=== PATIENT | female | born 1990 | race African-American/Black ===

== ENCOUNTER 2021-05-06 10:45 | Inpatient (IN) ==
[2021-05-06 11:52] LABS: Basophils % 0.3 % (0.0-0.8); Eosinophils # 0.1 10*3/uL (0.0-0.87); Eosinophils % 1.1 % (0.00-10.9); Hematocrit 34.3 VOL% (35.7-47.0); Hemoglobin 10.7 GM/DL (12.0-16.0); Immature Granulocytes % 0.7 %; Immature Granulocytes Absolute 0.05 #; Lymphocytes # 1.3 10*3/uL (1.4-4.0); Lymphocytes % 17.6 % (21.3-54.2); Mean Corpuscular HGB Conc 31.2 GM/DL (32-36); Mean Corpuscular Volume 83.7 FL (87-102); Mean Platelet Volume 11.1 FL (9.6-12.0); Monocytes % 4.6 % (1.7-12.7); Neutrophils % 75.7 % (38.7-73.9); Platelet Count 345 T/CUMM (130-400); Red Cell Distribution Width 16.5 % (9.3-17.3); White Blood Count 7.2 T/CUMM (4-12)
[2021-05-06 12:19] LABS: INR 0.9; PT Patient Result 10.7 SECS (10.5-12.0)
[2021-05-06 12:26] LABS: Alanine Aminotransferase 156 U/L (13-56); Albumin 2.2 G/DL (3.4-5.0); Alkaline Phosphatase 70 U/L (45-117); Aspartate Amino Transferase 68 U/L (0-37); Bilirubin,Direct < 0.100 MG/DL (0.0-0.20); Bilirubin,Total < 0.39 MG/DL (0.20-1.00); Blood Urea Nitrogen 9 MG/DL (7-18); Calcium 9.4 MG/DL (8.5-10.1); Carbon Dioxide 21 MMOL/L (21-32); Estimated Glom Filtration Rate 179 ML/MIN; Glucose 112 MG/DL (74-106); Osmolality,Calculated 274.7 MOS/KG (273-304); Sodium 138 MMOL/L (136-145); Total Protein 7.3 G/DL (6.4-8.2); Uric Acid 3.8 MG/DL (2.6-6.0)
[2021-05-06] MEDS ORDERED: DEXTROSE 50% 25 GM/50 ML SYRINGE IV PRN (13:15)
[2021-05-06] MEDS ORDERED: GLUCAGON 1 MG VIAL IM PRN (13:15)
[2021-05-06] MEDS ORDERED: BETAMETH SODIUM PHOS/ACETATE 30 MG/5 ML VIAL IM ONE (16:24)
[2021-05-06] MEDS ORDERED: INSULIN ASPART PROTAMINE/ASPART 70/30 100 UNIT/ML SUBCUT SCH (16:30)
[2021-05-06] MEDS ORDERED: INSULIN LISPRO 100 UNIT/ML SUBCUT SCH (19:00)
[2021-05-06] MEDS ORDERED: INSULIN GLARGINE 100 UNIT/ML SUBCUT SCH (21:00)
[2021-05-06] MEDS: sulfaSALAzine 500 MG TABLET PO SCH (21:14)
[2021-05-06] MEDS: LABETALOL 100 MG TABLET PO SCH (21:19)
[2021-05-07] MEDS ORDERED: CLINDAMYCIN INJ 900 MG/50 ML PREMIX IV ONE ×2 (00:51→12:00)
[2021-05-07] MEDS ORDERED: INFLUENZA VIRUS VACCINE 0.5 ML SYRINGE IM ONE (07:21)
[2021-05-07] MEDS ORDERED: INSULIN ASPART PROTAMINE/ASPART 70/30 100 UNIT/ML SUBCUT SCH ×2 (07:30→11:30)
[2021-05-07] MEDS ORDERED: INSULIN LISPRO 100 UNIT/ML SUBCUT SCH ×2 (08:00→12:00)
[2021-05-07] MEDS ORDERED: INSULIN GLARGINE 100 UNIT/ML SUBCUT SCH (09:00)
[2021-05-07] MEDS: LABETALOL 100 MG TABLET PO SCH (09:01)
[2021-05-07] MEDS ORDERED: METOCLOPRAMIDE 10 MG/2 ML VIAL IV ONE (10:18)
[2021-05-07] MEDS ORDERED: FAMOTIDINE 20 MG/2 ML VIAL IV ONE ×2 (10:32→12:00)
[2021-05-07] MEDS: LACTATED RINGERS 1,000 ML IV PRN ×2 (10:41→14:47)
[2021-05-07] MEDS: sulfaSALAzine 500 MG TABLET PO SCH (11:06)
[2021-05-07] MEDS ORDERED: CITRIC ACID/SODIUM CITRATE 30 ML UDCUP PO ONE (12:00)
[2021-05-07] MEDS ORDERED: OXYTOCIN 10 UNIT/ML VIAL IM ONE (13:44)
[2021-05-07] MEDS ORDERED: OXYTOCIN/LR 30 UNIT/1,000 ML BAG IV ONE (13:44)
[2021-05-07] MEDS ORDERED: OXYTOCIN/LR 20 UNIT/1,000 ML BAG IV ONE ×2 (13:44→16:40)
[2021-05-07] MEDS ORDERED: METOCLOPRAMIDE 10 MG/2 ML VIAL ONE (15:30)
[2021-05-07] MEDS ORDERED: ONDANSETRON 4 MG/2 ML VIAL ONE (15:30)
[2021-05-07] MEDS ORDERED: SODIUM CHLORIDE 0.9% 1,000 ML IV ONE (15:30)
[2021-05-07] MEDS ORDERED: BUPIVACAINE SPINAL 0.75% 2 ML AMP SPINAL ONE (15:30)
[2021-05-07] MEDS ORDERED: SUCCINYLCHOLINE 200 MG/10 ML VIAL ONE (15:51)
[2021-05-07] MEDS ORDERED: ROCURONIUM 50 MG/5 ML VIAL IV ONE (15:51)
[2021-05-07] MEDS ORDERED: MIDAZOLAM 2 MG/2 ML VIAL ONE ×2 (15:52)
[2021-05-07] MEDS ORDERED: fentaNYL 250 MCG/5 ML VIAL ONE (15:52)
[2021-05-07] MEDS ORDERED: propofoL 200 MG/20 ML VIAL IV ONE (16:06)
[2021-05-07 16:18] LABS: Cord Venous Blood HCO3 23.9 MMOL/L; Cord Venous Blood PCO2 46.3 MMHG; Cord Venous Blood PO2 33.9 MMHG
[2021-05-07] MEDS ORDERED: KETOROLAC 30 MG/1 ML VIAL ONE (16:22)
[2021-05-07] MEDS ORDERED: GLYCOPYRROLATE 0.4 MG/2 ML VIAL ONE (16:29)
[2021-05-07] MEDS ORDERED: NEOSTIGMINE 10 MG/10 ML VIAL ONE (16:29)
[2021-05-07] MEDS ORDERED: FUROSEMIDE 20 MG/2 ML VIAL ONE (16:31)
[2021-05-07] MEDS ORDERED: DEXTROSE 50% 25 GM/50 ML SYRINGE IV PRN ×2 (16:40→17:31)
[2021-05-07] MEDS ORDERED: RHO(D) IMMUNE GLOBULIN 300 MCG SYRINGE IM ONE (16:40)
[2021-05-07] MEDS ORDERED: MAGNESIUM HYDROXIDE SUSP 30 ML UDCUP PO PRN (16:40)
[2021-05-07] MEDS ORDERED: GLUCAGON 1 MG VIAL IM PRN (16:40)
[2021-05-07] MEDS ORDERED: ACETAMINOPHEN 325 MG TABLET PO PRN (16:40)
[2021-05-07] MEDS ORDERED: ONDANSETRON 4 MG/2 ML VIAL IV PRN ×2 (16:40→17:02)
[2021-05-07] MEDS ORDERED: IBUPROFEN 800 MG TABLET PO PRN (16:40)
[2021-05-07] MEDS ORDERED: LABETALOL 20 MG/4 ML SYRINGE IV ONE (16:59)
[2021-05-07] MEDS ORDERED: METOPROLOL TARTRATE 5 MG/5 ML VIAL IV ONE (16:59)
[2021-05-07] MEDS ORDERED: LACTATED RINGERS 1,000 ML IV SCH (17:00)
[2021-05-07] MEDS ORDERED: hydrOXYzine HCL 25 MG/1 ML VIAL IM PRN (17:02)
[2021-05-07] MEDS ORDERED: HYDROmorphone 2 MG/1 ML VIAL IV PRN (17:02)
[2021-05-07] MEDS ORDERED: diphenhydrAMINE 50 MG/1 ML VIAL IV PRN (17:02)
[2021-05-07] MEDS ORDERED: INSULIN REGULAR 100 UNIT/ML SUBCUT SCH (18:00)
[2021-05-07] MEDS ORDERED: NIFEdipine 10 MG CAPSULE PO ONE ×2 (18:12→18:35)
[2021-05-07 18:57] LABS: Bilirubin,Urine Negative (Negative); Blood, Urine Negative (Negative); Glucose,Urine (UA) Negative (Negative); Ketones,Urine 20 mg/dL (Negative); Mucus,Urine Occasional /LPF (Occasional); Nitrite,Urine Negative (Negative); Protein,Urine >=500 MG/DL; Squamous Epithelial Cell,Urine Occasional /HPF (0-10); Urine Appearance CLEAR (Clear); Urine Color Amber (Yellow); Urine Specific Gravity 1.023 (1.001-1.035); Urine Urobilinogen < 2.0 EU/DL (<2.0)
[2021-05-07] MEDS ORDERED: ACETAMINOPHEN 500 MG TABLET PO SCH (19:00)
[2021-05-07] MEDS: ACETAMINOPHEN 500 MG TABLET PO PRN (20:06)
[2021-05-07] MEDS: KETOROLAC 30 MG/1 ML VIAL IV SCH (21:48)
[2021-05-07] MEDS ORDERED: KETOROLAC 30 MG/1 ML VIAL IV SCH (22:00)
[2021-05-07] MEDS: CLINDAMYCIN INJ 900 MG/50 ML PREMIX IV SCH (23:10)
[2021-05-08] MEDS: KETOROLAC 30 MG/1 ML VIAL IV SCH ×2 (04:34→09:31)
[2021-05-08 05:40] LABS: Basophils % 0.3 % (0.0-0.8); Eosinophils % 0.4 % (0.00-10.9); Hematocrit 32.9 VOL% (35.7-47.0); Hemoglobin 10.2 GM/DL (12.0-16.0); Immature Granulocytes % 0.8 %; Immature Granulocytes Absolute 0.08 #; Lymphocytes # 1.7 10*3/uL (1.4-4.0); Lymphocytes % 16.1 % (21.3-54.2); Mean Corpuscular Volume 85.2 FL (87-102); Mean Platelet Volume 11.2 FL (9.6-12.0); Monocytes % 5.7 % (1.7-12.7); Neutrophils % 76.7 % (38.7-73.9); Platelet Count 361 T/CUMM (130-400); Red Blood Count 3.86 MC/CUMM (3.8-5.5); Red Cell Distribution Width 16.7 % (9.3-17.3); White Blood Count 10.6 T/CUMM (4-12)
[2021-05-08] MEDS: CLINDAMYCIN INJ 900 MG/50 ML PREMIX IV SCH ×2 (07:03→14:36)
[2021-05-08] MEDS: DOCUSATE SODIUM 100 MG CAPSULE PO SCH ×3 (07:50→20:11)
[2021-05-08] MEDS: ACETAMINOPHEN 500 MG TABLET PO PRN (08:37)
[2021-05-08] MEDS: MULTIVITAMIN (PRENATAL) TABLET PO SCH (08:38)
[2021-05-08] MEDS ORDERED: oxyCODONE/ACETAMINOPHEN 5-325 MG TABLET PO PRN (19:47)
[2021-05-08] MEDS: SIMETHICONE CHEW 80 MG TABLET PO PRN (20:11)
[2021-05-08] MEDS: METOCLOPRAMIDE 10 MG TABLET PO SCH (20:11)
[2021-05-08] MEDS: IBUPROFEN 800 MG TABLET PO PRN (20:12)
[2021-05-08] MEDS: oxyCODONE/ACETAMINOPHEN 5-325 MG TABLET PO PRN (20:12)
[2021-05-09] MEDS: IBUPROFEN 800 MG TABLET PO PRN ×3 (02:43→15:05)
[2021-05-09] MEDS: oxyCODONE/ACETAMINOPHEN 5-325 MG TABLET PO PRN ×4 (02:44→20:22)
[2021-05-09] MEDS: METOCLOPRAMIDE 10 MG TABLET PO SCH ×3 (03:50→20:21)
[2021-05-09] MEDS ORDERED: MAGNESIUM CITRATE 300 ML BOTTLE PO ONE (03:54)
[2021-05-09] MEDS: SIMETHICONE CHEW 80 MG TABLET PO PRN ×2 (04:04→20:26)
[2021-05-09 05:50] LABS: Basophils % 0.2 % (0.0-0.8); Eosinophils # 0.1 10*3/uL (0.0-0.87); Hematocrit 35.5 VOL% (35.7-47.0); Hemoglobin 10.8 GM/DL (12.0-16.0); Immature Granulocytes % 0.9 %; Immature Granulocytes Absolute 0.08 #; Lymphocytes # 1.8 10*3/uL (1.4-4.0); Lymphocytes % 20.2 % (21.3-54.2); Mean Corpuscular HGB Conc 30.4 GM/DL (32-36); Mean Platelet Volume 10.3 FL (9.6-12.0); Monocytes % 5.4 % (1.7-12.7); Neutrophils % 72.3 % (38.7-73.9); Platelet Count 363 T/CUMM (130-400); Red Blood Count 4.13 MC/CUMM (3.8-5.5); Red Cell Distribution Width 16.9 % (9.3-17.3); White Blood Count 8.8 T/CUMM (4-12)
[2021-05-09 06:12] LABS: Calcium 9.5 MG/DL (8.5-10.1); Osmolality,Calculated 273.7 MOS/KG (273-304); Potassium 4.2 MMOL/L (3.5-5.1)
[2021-05-09 07:20] LABS: Albumin 2.4 G/DL (3.4-5.0); Bilirubin,Total 0.4 MG/DL (0.20-1.00); Calcium 9.2 MG/DL (8.5-10.1); Osmolality,Calculated 277.4 MOS/KG (273-304); Potassium 4.4 MMOL/L (3.5-5.1); Total Protein 7.7 G/DL (6.4-8.2)
[2021-05-09] MEDS: MULTIVITAMIN (PRENATAL) TABLET PO SCH (09:33)
[2021-05-09] MEDS: DOCUSATE SODIUM 100 MG CAPSULE PO SCH ×2 (09:33→20:21)
[2021-05-09] MEDS: INSULIN REGULAR 100 UNIT/ML SUBCUT SCH ×2 (11:02→19:15)
[2021-05-09] MEDS ORDERED: BISACODYL 10 MG SUPP RECTAL PRN (13:07)
[2021-05-09] MEDS ORDERED: SERTRALINE 50 MG TABLET PO SCH (21:00)
[2021-05-10] MEDS: oxyCODONE/ACETAMINOPHEN 5-325 MG TABLET PO PRN ×2 (01:40→07:45)
[2021-05-10] MEDS: METOCLOPRAMIDE 10 MG TABLET PO SCH (04:53)
[2021-05-10] MEDS: IBUPROFEN 800 MG TABLET PO PRN (06:13)
[2021-05-10] MEDS: INSULIN REGULAR 100 UNIT/ML SUBCUT SCH (07:36)
[2021-05-10] MEDS: DOCUSATE SODIUM 100 MG CAPSULE PO SCH (08:38)
[2021-05-10] MEDS: MULTIVITAMIN (PRENATAL) TABLET PO SCH (08:43)
[2021-05-10 08:50] VITALS: BP 175/80
[2021-05-10] MEDS ORDERED: INFLUENZA VIRUS VACCINE 0.5 ML SYRINGE IM ONE (12:42)
[2021-05-10] MEDS ORDERED: DIPH/TET/ACEL PERT BOOSTER VACCINE 0.5 ML VIAL IM ONE (12:42)
== END 2021-05-10 13:45 | disposition home or self-care (01) | DRG 539 ==
LOC: N.LDOUT 10:45 → N.LD 10:48 → N.OB 05-08 15:40
PROVIDERS: ADMIT Obstetrics & Gynecology; ATTEND Obstetrics & Gynecology